=== PATIENT | female | born 1940 | race American Indian/Alaskan Native ===

== ENCOUNTER 2016-11-27 09:37 | Outpatient (CLI) | payer BC, MEDICARE ==
--- NOTE | 2016-11-27 10:31 | XRay Report ---
RIGHT WRIST FOUR VIEWS: 11/27/16 CLINICAL: Pain. FINDINGS: No fracture or dislocation. A few degenerative cysts in the lunate and in the capitate. 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 Mild radiocarpal joint arthritis. Normal soft tissues. 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
== END 2016-11-27 09:38 | disposition home or self-care (01) ==
LOC: SPVIMAG 09:37
PROVIDERS: ATTEND Internal Medicine
DX: M18.11 Unilateral primary osteoarthritis of first carpometacarpal joint, right hand (principal); M25.841 Other specified joint disorders, right hand

== ENCOUNTER 2020-08-10 11:27 | Outpatient (CLI) | payer BC ==
--- NOTE | 2020-08-10 12:11 | XRay Report ---
CHEST 2 VIEWS INDICATION / CLINICAL INFORMATION: COUGH. COMPARISON: None available. FINDINGS: SUPPORT DEVICES: None. HEART / MEDIASTINUM: No significant abnormality. LUNGS / PLEURA: No significant pulmonary or pleural abnormality. No pneumothorax. ADDITIONAL FINDINGS: No significant additional findings. IMPRESSION: 1. No acute findings. Signer Name: Hai Dick MD Signed: 08/10/2020 12:06 PM Workstation Name: [employer] [facility] [id number]
== END 2020-08-10 11:28 | disposition home or self-care (01) ==
LOC: SPVIMAG 11:27
PROVIDERS: ATTEND Nurse Practitioner
DX: R05 Cough (principal)
CPT/HCPCS: 71046